=== PATIENT | female | born 1940 ===

== ENCOUNTER 2024-02-01 07:23 | Day surgery (SDC) | payer MEDICARE ==
[~2024-02-01] VITALS: Ht 160 cm; Wt 84.6 kg
[~2024-02-01 07:23] MED LIST: AMOCLA875 PO; ENAL10 PO; K-DUR; LEVSOD112 PO; LEVSOD75 PO; LISI5 PO; METO25ER PO; Vitamin B Comple1 EA PO
[2024-02-01] MEDS ORDERED: One Daily Wome0.4 MG (07:39)
[2024-02-01] MEDS ORDERED: VITAMIN D31250 MC2 (07:39)
[2024-02-01] MEDS ORDERED: propofoL 40 ML IV ONE (07:57)
[2024-02-01] MEDS ORDERED: Lactated Ringer's 1,000 ML IV ONE ×2 (07:57→08:18)
[2024-02-01 09:22] VITALS: BP 135/69
== END 2024-02-01 09:18 | disposition home or self-care (01) ==
LOC: ORSCSDS 07:23
PROVIDERS: Surgery
PROC: 0DBN8ZX Excision of Sigmoid Colon, Via Natural or Artificial Opening Endoscopic, Diagnostic (ICD-10-PCS; principal; 2024-02-01 08:30)
PROC: 0DBL8ZX Excision of Transverse Colon, Via Natural or Artificial Opening Endoscopic, Diagnostic (ICD-10-PCS; principal; 2024-02-01 08:30)
DX: Z12.11 Encounter for screening for malignant neoplasm of colon (principal); D12.3 Benign neoplasm of transverse colon; D12.5 Benign neoplasm of sigmoid colon; K57.30 Diverticulosis of large intestine without perforation or abscess without bleeding; K64.8 Other hemorrhoids; I10 Essential (primary) hypertension; E07.9 Disorder of thyroid, unspecified; Z79.899 Other long term (current) drug therapy
CPT/HCPCS: 88305; J2704; J7120

== ENCOUNTER → 2024-07-12 | Outpatient (CLI) | payer MEDICARE ==
[~2024-07-12] MED LIST changes: +One Daily Wome0.4 MG; +VITAMIN D31250 MC2
== END ==
LOC: LAB SHORT 16:23 → LAB 16:23
DX: R39.81 Functional urinary incontinence (principal)
CPT/HCPCS: 87086

== ENCOUNTER 2025-03-21 07:11 | Day surgery (SDC) | payer MEDICARE ==
[2025-03-21] VITALS (10 sets, daily range): BP systolic 87–107; BP diastolic 51–80
[2025-03-21] MEDS ORDERED: ELIQUIS5 M2 PO (07:34)
[2025-03-21] MEDS ORDERED: BUME1 PO (07:35)
[2025-03-21] MEDS ORDERED: POTA10T PO (07:35)
[2025-03-21] MEDS ORDERED: NS 1,000 ML IV ONE (07:42)
--- NOTE | 2025-03-21 08:21 | NUR ---
ASSUMED CARE FROM ANESTHESIA. PT AWAKE AND VERBALIZING WELL. SR 60 BPM POST CARDIOVERSION.
[2025-03-21] MEDS ORDERED: METO50ER PO (08:39)
--- NOTE | 2025-03-21 09:27 | NUR ---
PT VERBALIZED UNDERSTANDING OF WRITTEN AND VERBAL D/C INST. IV REMOVED. SR 60 BPM POST CARDIOVERSION. PT TAKEN OUT OF THE DEPARTMENT VIA W/C.
[2025-03-21] MEDS ORDERED: Propofol 10mg/ml 20 ml Vial (Procedural) IV ONE (10:54)
== END 2025-03-21 23:00 | disposition home or self-care (01) ==
LOC: MHTC 07:11
DX: I48.92 Unspecified atrial flutter (principal); R60.9 Edema, unspecified; R00.2 Palpitations; R94.31 Abnormal electrocardiogram [ECG] [EKG]; R06.02 Shortness of breath; I10 Essential (primary) hypertension; Z79.01 Long term (current) use of anticoagulants; Z79.890 Hormone replacement therapy; Z79.899 Other long term (current) drug therapy
CPT/HCPCS: 92960; J2704; J7030

== ENCOUNTER 2025-04-14 16:30 | Emergency (ER) | payer MEDICARE ==
[~2025-04-14] VITALS: Ht 157.5 cm; Wt 81.7 kg
[~2025-04-14 16:30] MED LIST changes: +BUME1 PO; +ELIQUIS5 M2 PO; +METO50ER PO; +POTA10T PO
[2025-04-14 17:11] LABS: BASOPHILS ABSOLUTE AUTO 0.06 K/mm3 (0.00-0.23); BASOPHILS PERCENT AUTO 1 % (0-2); EOSINOPHILS ABSOLUTE AUTO 0.06 K/mm3 (0.00-0.68); EOSINOPHILS PERCENT AUTO 1 % (0-6); Hematocrit 45.8 % (33.0-51.0); Hemoglobin 14.3 g/dL (11.5-16.0); IMMATURE GRAN ABSOLUTE AUTO 0.07 K/mm3 (0.00-0.10); IMMATURE GRAN PERCENT AUTO 1 % (0-1); LYMPHOCYTES ABSOLUTE AUTO 1.36 K/mm3 (0.84-5.20); LYMPHOCYTES PERCENT AUTO 11 % (21-46); MONOCYTES ABSOLUTE AUTO 0.90 K/mm3 (0.16-1.47); MONOCYTES PERCENT AUTO 8 % (4-13); Mean Corpuscular HGB Conc 31.2 g/dL (31.5-36.5); Mean Corpuscular Volume 84 fL (80-100); NEUTROPHILS ABSOLUTE AUTO 9.51 K/mm3 (1.96-9.15); NEUTROPHILS PERCENT AUTO 80 % (41-73); NRBC ABSOLUTE 0.00 K/mm3 (0.00-0.02); NRBC Auto 0.0 /100 WBC (0.0-0.2); Platelet Count 269 K/mm3 (150-400); RDW Coefficient Variation 18.2 % (11.7-14.2); RDW Standard Deviation 53.2 fL (35.1-46.3)
[2025-04-14 17:27] LABS: Alanine Aminotransfer (ALT/SGP 28.0 U/L (12-78); Albumin, Blood 3.3 g/dL (3.4-5.0); Albumin/Globulin Ratio 0.8 (0.8-1.8); Anion Gap 9.0 mmol/L (3-11); Aspartate Aminotrans (AST/SGOT 35.0 U/L (12-37); Bilirubin, Total 0.6 mg/dL (0.1-1.0); Blood Urea Nitrogen 24.0 mg/dL (8-24); CO2, Blood 28.0 mmol/L (21-32); Calcium, Blood 9.3 mg/dL (8.5-10.1); Chloride, Blood 104.0 mmol/L (98-108); Creatinine, Blood 0.69 mg/dL (0.40-1.00); Globulin, Blood 4.2 g/dL (2.2-4.0); Glucose, Blood 127.0 mg/dL (70-99); Potassium, Blood 3.8 mmol/L (3.5-5.5); Sodium, Blood 137.0 mmol/L (136-145); Total Protein, Blood 7.5 g/dL (6.4-8.2)
[2025-04-14] MEDS ORDERED: NS 1,000 ML IV SCH ×2 (19:10)
[2025-04-14 19:25] VITALS: BP 133/66
== END 2025-04-14 21:00 | disposition home or self-care (01) ==
LOC: ER 16:30
PROVIDERS: Student in an Organized Health Care Education/Training Program
DX: R55 Syncope and collapse (principal); Z79.01 Long term (current) use of anticoagulants; Z79.899 Other long term (current) drug therapy; Z90.710 Acquired absence of both cervix and uterus
CPT/HCPCS: 80053; 84484; 85025; 93005; 93010; 96360; 99284-25; J7030

== ENCOUNTER 2025-05-31 10:51 | Day surgery (SDC) | payer MEDICARE ==
[~2025-05-31] VITALS: Ht 160 cm; Wt 82.5 kg
[~2025-05-31 10:51] MED LIST changes: +Balanced Salt Epinephrine Irrigation Solution 500 mL IR SCH; +Moxifloxacin HCL 0.5 MG/0.1 ML 0.4MLSYR RIGHTEYE SCH; +NS 500 ML IV ONE; +PHENYLEPHRINE\\TROPICAMIDE\\TETRACAINE OPHTHALMIC DILATING SOLN RIGHTEYE PRN; +Povidone-Iodine 450 DROP/30 ML Solution ONE; +Povidone-Iodine 450 DROP/30 ML Solution RIGHTEYE SCH; +Tetracaine HCl/Pf 0.5% Opth Soln 4 ml ONE; +Triamcinolone Inj Susp 40 MG / ML 1ML Vial INJ SCH; +Triamcinolone Inj Susp 40 MG / ML 1ML Vial ONE
[2025-05-31] MEDS ORDERED: NS 500 ML IV ONE (11:30)
[2025-05-31] MEDS ORDERED: Povidone-Iodine 450 DROP/30 ML Solution ONE (11:53)
[2025-05-31] MEDS ORDERED: Midazolam HCl 1MG / ML 2ML Vial IV ONE (12:18)
[2025-05-31] MEDS ORDERED: FentaNYL Citrate 50 MCG/ML 2 ML Injection IV ONE (12:18)
[2025-05-31 12:51] VITALS: BP 118/62
== END 2025-05-31 13:07 | disposition home or self-care (01) ==
LOC: ORSCSDS 10:51
PROVIDERS: Ophthalmology
PROC: 08RJ3JZ Replacement of Right Lens with Synthetic Substitute, Percutaneous Approach (ICD-10-PCS; principal; 2025-05-31 12:30)
DX: H25.811 Combined forms of age-related cataract, right eye (principal); I48.91 Unspecified atrial fibrillation; I10 Essential (primary) hypertension; E07.9 Disorder of thyroid, unspecified; Z79.01 Long term (current) use of anticoagulants; Z79.899 Other long term (current) drug therapy
CPT/HCPCS: J2250; J3010; J3301; J7040; V2632

== ENCOUNTER 2025-06-14 10:32 | Day surgery (SDC) | payer MEDICARE ==
[~2025-06-14] VITALS: Ht 160 cm; Wt 84.1 kg
[~2025-06-14 10:32] MED LIST changes: +Moxifloxacin HCL 0.5 MG/0.1 ML 0.4MLSYR LEFTEYE SCH; -Moxifloxacin HCL 0.5 MG/0.1 ML 0.4MLSYR RIGHTEYE SCH; +PHENYLEPHRINE\\TROPICAMIDE\\TETRACAINE OPHTHALMIC DILATING SOLN LEFTEYE PRN; -PHENYLEPHRINE\\TROPICAMIDE\\TETRACAINE OPHTHALMIC DILATING SOLN RIGHTEYE PRN; +Povidone-Iodine 450 DROP/30 ML Solution LEFTEYE SCH; -Povidone-Iodine 450 DROP/30 ML Solution RIGHTEYE SCH
[2025-06-14] MEDS ORDERED: NS 500 ML IV ONE (11:40)
--- NOTE | 2025-06-14 11:53 | NUR ---
06/14/25 1153 AKASH SAN PT READY FOR OR,CALL LIGHT IN REACH. ENGAGED IN PRE OP /POST OP TEACHING. ALL QUESTIONS ASKED AND ANSWERED.
[2025-06-14] MEDS ORDERED: FentaNYL Citrate 50 MCG/ML 2 ML Injection ONE (12:08)
[2025-06-14] MEDS ORDERED: Midazolam HCl 1MG / ML 2ML Vial ONE (12:08)
[2025-06-14] MEDS ORDERED: Tetracaine HCl 0.5% Opth Soln 15 ml LEFTEYE ONE (12:15)
[2025-06-14 12:35] VITALS: BP 118/62
== END 2025-06-14 12:49 | disposition home or self-care (01) ==
LOC: ORSCSDS 10:32
PROVIDERS: Ophthalmology
PROC: 08RK3JZ Replacement of Left Lens with Synthetic Substitute, Percutaneous Approach (ICD-10-PCS; principal; 2025-06-14 12:30)
DX: H25.812 Combined forms of age-related cataract, left eye (principal); Z96.1 Presence of intraocular lens; I48.91 Unspecified atrial fibrillation; I10 Essential (primary) hypertension; E07.9 Disorder of thyroid, unspecified; E66.9 Obesity, unspecified; Z68.32 Body mass index [BMI] 32.0-32.9, adult; Z79.01 Long term (current) use of anticoagulants; Z79.899 Other long term (current) drug therapy
CPT/HCPCS: J2003; J2250; J3010; J3301; J7040; V2632